=== PATIENT | male | born 1945 | race Caucasian/White ===

== ENCOUNTER → 2018-03-05 | Outpatient (CLI) | payer MEDICARE, OTHER ==
[~2018-03-05] MED LIST: AMOCLA875 PO; HYDACE5 PO
== END | disposition home or self-care (01) ==
LOC: PLD 11:51 → LAB SHORT 11:51
DX: D48.5 Neoplasm of uncertain behavior of skin (principal)
CPT/HCPCS: 88305

== ENCOUNTER 2022-10-02 07:52 | Day surgery (SDC) | payer MEDICARE, OTHER ==
[~2022-10-02] VITALS: Ht 177.8 cm; Wt 69.4 kg
[~2022-10-02 07:52] MED LIST changes: +1/2 NS 250ml250 ML; +GABA300 PO; +KETO.5OPSO; +LATA.005SO BOTHEYES; +LORA.5; +Norco 5-325 Ta1 EACH PO; +ROSU10TA; +TIMO.5OPSO BOTHEYES
--- NOTE | 2022-10-02 10:28 | NUR ---
PT RETURNED TO RECOVERY ROOM IN BED. RIGHT RADIAL TR BAND SITE SOFT NON-TENDER WITH NO HEMATOMA, NO PULSATILE BLEEDING AND RIGHT WRIST BOARD IN PLACE. PT DENIES CHEST PAIN. CALL LIGHT IN REACH.
[2022-10-02] MEDS ORDERED: Aspir 8181 MG PO (10:50)
--- NOTE | 2022-10-02 11:52 | NUR ---
PT EATING LUNCH.
--- NOTE | 2022-10-02 12:39 | NUR ---
9 CC OF AIR REMOVED OVER 12 MINUTES FROM NOW DEFLATED RIGHT TR BAND SITE; NO HEMATOMA,NO PULSATILE BLEEDING.
--- NOTE | 2022-10-02 12:44 | NUR ---
NO CHANGES TO DEFLATED RIGHT TR BAND SITE.
--- NOTE | 2022-10-02 12:51 | NUR ---
NO CHANGES TO DEFLATED R RAD TR BAND SITE.
--- NOTE | 2022-10-02 14:16 | NUR ---
DISCHARGE INSTRUCTIONS REVIEWED ALL QUESTIONS ANSWERED. DEFLATED R TR BAND REMOVED AND POLYMEM PLACED OVER R RAD SITE WITH RIGHT WRIST BOARD IN PLACE. RIGHT RAD SITE STILL SOFT, NON-TENDER WITH NO HEMATOMA AND NO PULSATILE BLEEDING. 20 IV DISCONTINUED FROM LEFT AC WITH INTACT CANNULA. PT AMBULATED TO BR TO VOID. PT ESCORTED OUT VIA WHEELCHAIR ESCORT.
== END 2022-10-02 14:10 | disposition home or self-care (01) ==
LOC: MHTC 07:52
DX: I25.10 Atherosclerotic heart disease of native coronary artery without angina pectoris (principal); R93.89 Abnormal findings on diagnostic imaging of other specified body structures; I48.0 Paroxysmal atrial fibrillation
CPT/HCPCS: 76937; 93454; 99152; 99153; A9270; C1769; C1887; C1894; J1644; J2250; J3010; J7030; J7050; Q9967